=== PATIENT | female | born 1930 | race Hispanic/Latino ===

== ENCOUNTER 2021-09-16 15:15 | Inpatient (IN) | payer MEDICARE ==
[~2021-09-16] VITALS: Ht 144.8 cm; Wt 63.0 kg
[2021-09-16] MEDS ORDERED: ASPIRIN 325MG TAB ONE (15:37)
[2021-09-16 15:59] LABS: BASOPHILS % (AUTO) 0.4 % (0.0-5.0); EOSINOPHILS % (AUTO) 0.8 % (0.0-8.0); HEMATOCRIT 25.9 % (36-48); LYMPHOCYTES % (AUTO) 8.6 % (21.0-51.0); MEAN CORPUSCULAR HEMOGLOBIN 26.3 pg (27.0-33.0); MEAN CORPUSCULAR HGB CONC 30.9 g/dL (32.0-36.0); MEAN CORPUSCULAR VOLUME 85.2 fL (79-99); MONOCYTES % (AUTO) 5.5 % (3.0-13.0); NEUTROPHILS % (AUTO) 84.3 % (40.0-77.0); PLATELET COUNT (AUTO) 176 K/uL (130-400); RED BLOOD CELL COUNT(AUTO) 3.04 MIL/uL (4.00-5.50); RED CELL DISTRIBUTION WIDTH 17.2 % (11.0-15.5); WHITE BLOOD COUNT (AUTO) 7.4 K/uL (4.8-10.8)
[2021-09-16] MEDS ORDERED: NITROGLYCERIN 0.4 MG SL TAB SL PRN ×2 (16:00)
[2021-09-16] MEDS ORDERED: ASPIRIN 81MG CHEW TAB PO ONE (16:00)
[2021-09-16] MEDS ORDERED: ASPIRIN 325MG TAB PO ONE (16:00)
[2021-09-16 16:17] LABS: B-TYPE NATRIURETIC PEPTIDE 2940 pg/mL (0-100)
[2021-09-16 16:18] LABS: CREATININE 1.4 mg/dL (0.5-1.5); POTASSIUM 4.4 mmol/L (3.5-5.1)
[2021-09-16 16:25] LABS: ALBUMIN 3.5 g/dL (3.5-5.0); BILIRUBIN,TOTAL 0.5 mg/dL (0.2-1.0); TOTAL PROTEIN, SERUM 7.1 g/dL (6.0-8.3)
[2021-09-16] MEDS ORDERED: NITROGLYCERIN 1GM OINT 1 INCH/1GM TD ONE (16:30)
[2021-09-16] MEDS ORDERED: FUROSEMIDE 40MG VIAL IV ONE (18:00)
[2021-09-16] MEDS ORDERED: ACETAMINOPHEN 325 MG TAB PO PRN (20:00)
[2021-09-16] MEDS ORDERED: ONDANSETRON 4MG TABLET PO PRN (20:00)
[2021-09-16] MEDS ORDERED: FUROSEMIDE 40MG VIAL ONE (20:59)
[2021-09-16] MEDS ORDERED: MELO7.5T12 PO (23:56)
[2021-09-16] MEDS ORDERED: HYDR200T82 PO (23:56)
[2021-09-16] MEDS ORDERED: CA C-5 PO (23:56)
[2021-09-16] MEDS ORDERED: GABA-529 PO (23:56)
[2021-09-16] MEDS ORDERED: TRAM-355 PO (23:56)
[2021-09-16] MEDS ORDERED: AEC81 PO (23:56)
[2021-09-16] MEDS ORDERED: FOLI1TAB61 PO (23:56)
[2021-09-16] MEDS ORDERED: MIRA50TA PO (23:56)
[2021-09-16] MEDS ORDERED: CYCL30DR OP (23:56)
[2021-09-16] MEDS ORDERED: ALLO100T PO (23:56)
[2021-09-16] MEDS ORDERED: METO-408 PO (23:56)
[2021-09-16] MEDS ORDERED: CHOL100040 PO (23:56)
[2021-09-16] MEDS ORDERED: RABE20TA30 PO (23:56)
[2021-09-17] VITALS (7 sets, daily range): BP systolic 104–167; BP diastolic 30–78
[2021-09-17 04:48] LABS: HEMATOCRIT 27.1 % (36-48); MEAN CORPUSCULAR VOLUME 83.9 fL (79-99); RED BLOOD CELL COUNT(AUTO) 3.23 MIL/uL (4.00-5.50)
[2021-09-17 04:58] LABS: HEMOGLOBIN A1C 5.8 % (4.0-6.0)
[2021-09-17 05:18] LABS: CREATININE 1.1 mg/dL (0.5-1.5); MAGNESIUM 1.5 mg/dL (1.80-2.40); POTASSIUM 3.8 mmol/L (3.5-5.1)
[2021-09-17] MEDS: ENOXAPARIN SODIUM 30 MG/0.3 ML SQ SCH (08:42)
[2021-09-17] MEDS ORDERED: METOPROLOL SUCCINATE 50 MG TAB.SR.24H PO PRN (13:30)
[2021-09-17] MEDS ORDERED: COMPOUND IV REFRIGERATED 1 EACH IVSOLN MISC PRN (14:00)
[2021-09-17] MEDS: GABAPENTIN 100 MG CAPSULE PO SCH ×2 (14:15→21:17)
[2021-09-17] MEDS: TRAMADOL /APAP 37.5MG/325MG TAB PO SCH ×2 (17:31→21:18)
[2021-09-17] MEDS: **HM**(Mirabegron (Myrbetriq) 50 MG PO SCH (17:32)
[2021-09-17] MEDS ORDERED: FUROSEMIDE 40MG VIAL IVP SCH (18:00)
[2021-09-17] MEDS: **HM**(Cyclosporine (Restasis) 1 EACH OP SCH (21:00)
[2021-09-17] MEDS: HYDROXYCHLOROQUINE SULFATE 200 MG TAB PO SCH (21:17)
[2021-09-17] MEDS: FUROSEMIDE 20MG VIAL IVP SCH (21:18)
[2021-09-18 03:39] VITALS: BP 136/68
[2021-09-18 04:46] LABS: CREATININE 1.2 mg/dL (0.5-1.5); POTASSIUM 4.5 mmol/L (3.5-5.1)
[2021-09-18 05:12] LABS: LACTATE DEHYDROGENASE 220 U/L (81-234)
[2021-09-18 05:15] LABS: % IRON SATURATION 9.7 % (22-44)
[2021-09-18 08:51] VITALS: BP 125/50
[2021-09-18] MEDS: CA CARB PO SCH (09:00)
[2021-09-18] MEDS: D3 PO SCH (09:00)
[2021-09-18] MEDS: COP PO SCH (09:00)
[2021-09-18] MEDS: MAG OX PO SCH (09:00)
[2021-09-18] MEDS: MANG PO SCH (09:00)
[2021-09-18] MEDS: LOSARTAN 25 MG TABLET PO SCH (09:00)
[2021-09-18] MEDS: [UNRECOGNIZED DRUG - OTHER] PO SCH (09:00)
[2021-09-18] MEDS ORDERED: COMPOUND IV MISC 1 EACH IVSOLN MISC PRN (10:00)
[2021-09-18] MEDS: IRON SUCROSE COMPLEX 300 MG in 0.9%NACL 50ML 50 ML IV SCH (10:27)
[2021-09-18] MEDS: FUROSEMIDE 20MG VIAL IVP SCH ×2 (10:47→21:16)
[2021-09-18] MEDS: GABAPENTIN 100 MG CAPSULE PO SCH ×3 (10:58→21:15)
[2021-09-18] MEDS: Vitamin B Complex/Vit C/Folic Acid PO SCH (10:58)
[2021-09-18] MEDS: ASPIRIN 81 MG EC TAB PO SCH (10:58)
[2021-09-18] MEDS: MELOXICAM 7.5 MG TABLET PO SCH (10:58)
[2021-09-18] MEDS: PANTOPRAZOLE 40 MG TAB DR PO SCH (10:58)
[2021-09-18] MEDS: ENOXAPARIN SODIUM 30 MG/0.3 ML SQ SCH (10:59)
[2021-09-18] MEDS: **HM**(Cyclosporine (Restasis) 1 EACH OP SCH ×2 (11:15→21:00)
[2021-09-18] MEDS: **HM**Cholecalciferol (Vitamin D3) (Vitamin D3) 25 MCG PO SCH (11:15)
[2021-09-18] MEDS: **HM**(Mirabegron (Myrbetriq) 50 MG PO SCH (11:15)
[2021-09-18] MEDS: TRAMADOL /APAP 37.5MG/325MG TAB PO SCH ×4 (11:24→21:17)
[2021-09-18 11:33] VITALS: BP 120/64
[2021-09-18] MEDS: ALLOPURINOL 100 MG TABLET PO SCH (13:50)
[2021-09-18 17:17] VITALS: BP 107/58
[2021-09-18 19:46] VITALS: BP 113/40
[2021-09-18] MEDS: HYDROXYCHLOROQUINE SULFATE 200 MG TAB PO SCH (21:16)
[2021-09-18 23:24] VITALS: BP 111/63
[2021-09-19] VITALS (11 sets, daily range): BP systolic 76–138; BP diastolic 33–84
[2021-09-19 04:23] LABS: HEMATOCRIT 29.5 % (36-48); MEAN CORPUSCULAR HEMOGLOBIN 26.2 pg (27.0-33.0); MEAN CORPUSCULAR HGB CONC 30.5 g/dL (32.0-36.0); MEAN CORPUSCULAR VOLUME 85.8 fL (79-99); RED BLOOD CELL COUNT(AUTO) 3.44 MIL/uL (4.00-5.50); RED CELL DISTRIBUTION WIDTH 16.9 % (11.0-15.5)
[2021-09-19 04:35] LABS: CREATININE 1.3 mg/dL (0.5-1.5); MAGNESIUM 1.5 mg/dL (1.80-2.40); POTASSIUM 3.8 mmol/L (3.5-5.1)
[2021-09-19] MEDS: PANTOPRAZOLE 40 MG TAB DR PO SCH (08:00)
[2021-09-19] MEDS: IRON SUCROSE COMPLEX 300 MG in 0.9%NACL 50ML 50 ML IV SCH (08:34)
[2021-09-19] MEDS: D3 PO SCH (09:00)
[2021-09-19] MEDS: GABAPENTIN 100 MG CAPSULE PO SCH ×3 (09:00→22:12)
[2021-09-19] MEDS: COP PO SCH (09:00)
[2021-09-19] MEDS: MAG OX PO SCH (09:00)
[2021-09-19] MEDS: CA CARB PO SCH (09:00)
[2021-09-19] MEDS: [UNRECOGNIZED DRUG - OTHER] PO SCH (09:00)
[2021-09-19] MEDS: **HM**(Cyclosporine (Restasis) 1 EACH OP SCH ×2 (09:00→21:00)
[2021-09-19] MEDS: LOSARTAN 25 MG TABLET PO SCH (09:00)
[2021-09-19] MEDS: ASPIRIN 81 MG EC TAB PO SCH (09:00)
[2021-09-19] MEDS: MANG PO SCH (09:00)
[2021-09-19] MEDS: ENOXAPARIN SODIUM 30 MG/0.3 ML SQ SCH (09:00)
[2021-09-19] MEDS: **HM**Cholecalciferol (Vitamin D3) (Vitamin D3) 25 MCG PO SCH (09:00)
[2021-09-19] MEDS: TRAMADOL /APAP 37.5MG/325MG TAB PO SCH ×4 (09:00→22:12)
[2021-09-19 09:32] LABS: INR 1.1 (0.85-1.15); PROTHROMBIN TIME 11.9 SEC (9.6-11.6)
[2021-09-19 09:34] LABS: PARTIAL THROMBOPLASTIN TIME 57.3 SEC (26.3-35.5)
[2021-09-19] MEDS: ALLOPURINOL 100 MG TABLET PO SCH ×2 (12:00→14:59)
[2021-09-19] MEDS: FUROSEMIDE 20 MG TABLET PO SCH ×2 (12:00→17:39)
[2021-09-19] MEDS ORDERED: MIDAZOLAM HCL 1 MG/ML 2ML VIAL ONE (12:33)
[2021-09-19] MEDS ORDERED: FENTANYL CITRATE PF 50 MCG/1 ML 2ML VIAL ONE (12:33)
[2021-09-19] MEDS: MELOXICAM 7.5 MG TABLET PO SCH (14:50)
[2021-09-19] MEDS: Vitamin B Complex/Vit C/Folic Acid PO SCH (14:50)
[2021-09-19] MEDS: METOPROLOL SUCCINATE 50 MG TAB.SR.24H PO SCH (14:51)
[2021-09-19] MEDS: **HM**(Mirabegron (Myrbetriq) 50 MG PO SCH (16:58)
[2021-09-19] MEDS: HYDROXYCHLOROQUINE SULFATE 200 MG TAB PO SCH (22:12)
[2021-09-20 00:15] VITALS: BP 141/62
[2021-09-20 04:07] VITALS: BP 131/70
[2021-09-20 04:33] LABS: HEMATOCRIT 26.5 % (36-48); MEAN CORPUSCULAR HEMOGLOBIN 25.6 pg (27.0-33.0); MEAN CORPUSCULAR HGB CONC 30.2 g/dL (32.0-36.0); MEAN CORPUSCULAR VOLUME 84.7 fL (79-99); RED BLOOD CELL COUNT(AUTO) 3.13 MIL/uL (4.00-5.50); RED CELL DISTRIBUTION WIDTH 17.2 % (11.0-15.5); WHITE BLOOD COUNT (AUTO) 6.6 K/uL (4.8-10.8)
[2021-09-20 04:38] LABS: ALBUMIN 2.9 g/dL (3.5-5.0); CREATININE 1.3 mg/dL (0.5-1.5); POTASSIUM 4.1 mmol/L (3.5-5.1); TOTAL PROTEIN, SERUM 6.3 g/dL (6.0-8.3)
[2021-09-20 05:04] LABS: BILIRUBIN,TOTAL 0.2 mg/dL (0.2-1.0)
[2021-09-20 08:30] VITALS: BP 135/69
[2021-09-20] MEDS: GABAPENTIN 100 MG CAPSULE PO SCH ×2 (08:35→14:02)
[2021-09-20] MEDS: METOPROLOL SUCCINATE 50 MG TAB.SR.24H PO SCH (08:36)
[2021-09-20] MEDS: Vitamin B Complex/Vit C/Folic Acid PO SCH (08:36)
[2021-09-20] MEDS: PANTOPRAZOLE 40 MG TAB DR PO SCH (08:36)
[2021-09-20] MEDS: FUROSEMIDE 20 MG TABLET PO SCH (08:37)
[2021-09-20] MEDS: ASPIRIN 81 MG EC TAB PO SCH (08:37)
[2021-09-20] MEDS: ENOXAPARIN SODIUM 30 MG/0.3 ML SQ SCH ×2 (08:38→08:50)
[2021-09-20] MEDS: LOSARTAN 25 MG TABLET PO SCH (08:41)
[2021-09-20] MEDS: **HM**Cholecalciferol (Vitamin D3) (Vitamin D3) 25 MCG PO SCH (08:53)
[2021-09-20] MEDS: **HM**(Cyclosporine (Restasis) 1 EACH OP SCH (08:54)
[2021-09-20] MEDS: [UNRECOGNIZED DRUG - OTHER] PO SCH (08:58)
[2021-09-20] MEDS: MAG OX PO SCH (08:58)
[2021-09-20] MEDS: CA CARB PO SCH (08:58)
[2021-09-20] MEDS: D3 PO SCH (08:58)
[2021-09-20] MEDS: COP PO SCH (08:58)
[2021-09-20] MEDS: MANG PO SCH (08:58)
[2021-09-20] MEDS: MELOXICAM 7.5 MG TABLET PO SCH (09:08)
[2021-09-20] MEDS: IRON SUCROSE COMPLEX 300 MG in 0.9%NACL 50ML 50 ML IV SCH (09:08)
[2021-09-20] MEDS: TRAMADOL /APAP 37.5MG/325MG TAB PO SCH ×2 (09:08→14:03)
[2021-09-20] MEDS: ALLOPURINOL 100 MG TABLET PO SCH (11:48)
[2021-09-20] MEDS ORDERED: MAGNESIUM 2GM PREMIX 50ML 50 ML IV PRN (12:00)
[2021-09-20 12:51] VITALS: BP 124/53
== END 2021-09-20 15:00 | disposition home or self-care (01) | DRG 291 ==
LOC: EDH 15:15 → EDHIP 18:45 → 3DH 21:57 → 4DH 09-19 21:50
PROVIDERS: ADMIT Internal Medicine Infectious Disease; ATTEND Internal Medicine Infectious Disease
PROC: 07DR3ZX Extraction of Iliac Bone Marrow, Percutaneous Approach, Diagnostic (ICD-10-PCS; principal; 2021-09-19)
DX: I13.0 Hypertensive heart and chronic kidney disease with heart failure and stage 1 through stage 4 chronic kidney disease, or unspecified chronic kidney disease (principal); I50.21 Acute systolic (congestive) heart failure; I16.1 Hypertensive emergency; C90.00 Multiple myeloma not having achieved remission; M81.0 Age-related osteoporosis without current pathological fracture; N18.30 Chronic kidney disease, stage 3 unspecified; D47.2 Monoclonal gammopathy; M06.9 Rheumatoid arthritis, unspecified; M10.9 Gout, unspecified; Z96.653 Presence of artificial knee joint, bilateral; Z96.641 Presence of right artificial hip joint; E78.5 Hyperlipidemia, unspecified; I87.2 Venous insufficiency (chronic) (peripheral); R09.89 Other specified symptoms and signs involving the circulatory and respiratory systems; I48.0 Paroxysmal atrial fibrillation; I44.7 Left bundle-branch block, unspecified; R53.81 Other malaise; D50.9 Iron deficiency anemia, unspecified; D63.1 Anemia in chronic kidney disease; M35.00 Sjogren syndrome, unspecified; R29.6 Repeated falls; Z79.82 Long term (current) use of aspirin; Z79.899 Other long term (current) drug therapy; Z88.0 Allergy status to penicillin; Z88.8 Allergy status to other drugs, medicaments and biological substances
CPT/HCPCS: 36415; 38222; 71045; 77012; 80048; 80053; 80061; 82550; 82607; 83036; 83540; 83550; 83615; 83735; 83874; 83880; 84484; 85025; 85027; 85610; 85730; 93005; 93306; 93356; 99152; 99153; G0378; J1650; J1756; J1940; J2250; J3010; J3475